=== PATIENT | male | born 1945 | race Caucasian/White ===

== ENCOUNTER 2019-03-12 11:04 | Emergency (ER) | payer OTHER ==
[~2019-03-12] VITALS: Ht 180.3 cm; Wt 90.0 kg
[2019-03-12 12:51] VITALS: BP 155/84
== END 2019-03-12 12:58 | disposition home or self-care (01) | DRG 605 ==
LOC: ED 11:04
DX: S80.02XA Contusion of left knee, initial encounter (principal); W01.110A Fall on same level from slipping, tripping and stumbling with subsequent striking against sharp glass, initial encounter

== ENCOUNTER 2019-03-27 09:53 | Emergency (ER) | payer OTHER ==
[~2019-03-27] VITALS: Ht 180.3 cm; Wt 91.0 kg
[2019-03-27] MEDS ORDERED: ATORVASTATIN CA40 MG PO (11:56)
[2019-03-27] MEDS ORDERED: CLONAZEPAM2 MG PO (11:56)
[2019-03-27] MEDS ORDERED: ELIQUIS5 MG PO (11:57)
[2019-03-27] MEDS ORDERED: COLACE100 MG PO (11:57)
[2019-03-27] MEDS ORDERED: LASIX 20 MG TAB20 MG PO (11:57)
[2019-03-27] MEDS ORDERED: TYLENOL500 MG PO (11:58)
[2019-03-27] MEDS ORDERED: ZYLOPRIM300 MG PO (11:58)
[2019-03-27] MEDS ORDERED: DILTIAZEM CD180 MG PO (11:58)
[2019-03-27] MEDS ORDERED: ULTRAM50 M1 PO (11:59)
[2019-03-27] MEDS ORDERED: MULTIVITAMI1 PO (11:59)
[2019-03-27] MEDS ORDERED: [UNRECOGNIZED DRUG - OTHER] PO (12:01)
[2019-03-27] MEDS ORDERED: ISOSORBIDE MONO60 MG PO (12:02)
[2019-03-27] MEDS ORDERED: K-DUR/KLOR-CON20 MEQ PO (12:04)
[2019-03-27] MEDS ORDERED: OSCAL 500/1 TAB PO (12:04)
[2019-03-27] MEDS ORDERED: KEFLEX500 M1 PO (12:54)
[2019-03-27 13:05] VITALS: BP 131/79
== END 2019-03-27 13:05 | disposition home or self-care (01) | DRG 603 ==
LOC: ED 09:53
DX: L03.116 Cellulitis of left lower limb (principal); S80.02XD Contusion of left knee, subsequent encounter; W01.0XXD Fall on same level from slipping, tripping and stumbling without subsequent striking against object, subsequent encounter; Z96.653 Presence of artificial knee joint, bilateral

== ENCOUNTER 2019-05-03 | Emergency (ER) | payer OTHER ==
[~2019-05-03] MED LIST: ATORVASTATIN CA40 MG PO; CLONAZEPAM2 MG PO; COLACE100 MG PO; DILTIAZEM CD180 MG PO; ELIQUIS5 MG PO; ISOSORBIDE MONO60 MG PO; K-DUR/KLOR-CON20 MEQ PO; KEFLEX500 M1 PO; LASIX 20 MG TAB20 MG PO; MULTIVITAMI1 PO; OSCAL 500/1 TAB PO; TYLENOL500 MG PO; ULTRAM50 M1 PO; ZYLOPRIM300 MG PO; [UNRECOGNIZED DRUG - OTHER] PO
[2019-05-03] MEDS ORDERED: KEFLEX500 M1 PO (11:53)
== END 2019-05-03 13:08 | disposition home or self-care (01) | DRG 603 ==
DX: L03.116 Cellulitis of left lower limb (principal); I87.2 Venous insufficiency (chronic) (peripheral); R60.0 Localized edema